=== PATIENT | male | born 1970 | race Hispanic/Latino ===

== ENCOUNTER 2017-05-25 15:19 | Emergency (ER) | payer BC ==
[2017-05-25] MEDS ORDERED: Ketorolac Tromethamine 60 MG/2 ML VIAL ONE (18:50)
--- NOTE | 2017-05-25 19:30 | RAD ---
LUMBAR SPINE TWO VIEW: History: Pain. Comparison: None. FINDINGS: There are five non-rib bearing lumbar type vertebrae. Mild dextroscoliosis. No acute fracture or cat lignment is appreciated. Mild narrowing of the disc space at L3-4, L4-5, and L5-S1 with small anterior osteophytes. No listhes is. IMPRESSION: No acute fracture or malalignment. POS: MIHAELA
[2017-05-25] MEDS ORDERED: cloNIDine 0.1 MG TAB ONE (19:57)
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
== END 2017-05-25 20:03 | disposition home or self-care (01) ==
LOC: ERS 15:19
DX: S16.1XXA Strain of muscle, fascia and tendon at neck level, initial encounter (principal); S39.012A Strain of muscle, fascia and tendon of lower back, initial encounter; E11.9 Type 2 diabetes mellitus without complications; I10 Essential (primary) hypertension; V43.52XA Car driver injured in collision with other type car in traffic accident, initial encounter
CPT/HCPCS: 72040; 72100; 96372; J1885

== ENCOUNTER 2018-02-17 09:07 | Outpatient (CLI) | payer BC ==
--- NOTE | 2018-02-17 10:50 | RAD ---
CERVICAL SPINE SERIES SEVEN VIEWS INCLUDING FLEXION AND EXTENSION AND OBLIQUE VIEWS: HISTORY: A 47-year-old male with a history of cervical radiculopathy. COMPARISON: 05/25/2017. FINDINGS: Generalized disk degenerative change and facet arthrosis and disk-osteophytosis. No prevertebral sof t tissue swelling. No significant malalignment. No abnormal translation between flexion and extensi on. IMPRESSION: Some generalized cervical spondylosis. No other significant acute process. No significant change fr om prior study. POS: MIHAELA
--- NOTE | 2018-02-17 12:42 | MRI ---
LUMBAR SPINE MRI WITHOUT IV CONTRAST: HISTORY: A 47-year-old male with a history of lumbar radiculopathy, low back pain and right leg pain. FINDINGS: Conus medullaris region is unremarkable terminating at L1-L2. There are some disk desiccation change s and ligament and facet hypertrophic changes. L1-L2 and L2-L3 disks are unremarkable. At L3-L4, there is some disk space narrowing and mild disk bulging withuot significant associated julio nosis. At L4-L5, there is diffuse disk bulging without significant central canal, lateral recess, or foramin al stenosis. At L5-S1, some left paracentral annular fissures. No significant canal, lateral recess, or foraminal stenosis. IMPRESSION: Disk desiccation changes without significant associated stenosis. Several annular fissures noted in the left paracentral region of L5-S1. POS: MIHAELA
--- NOTE | 2018-02-17 12:49 | MRI ---
CERVICAL SPINE MRI NONCONTRAST: Date: 02/17/18 CLINICAL HISTORY: Cervical radiculopathy. FINDINGS: No acute marrow edema, compression fracture, or significant subluxation. There is mild degenerative h ypertrophy at the C1-2 level without C1-2 level central canal stenosis. C2-3 level is unremarkable. C3-4: Right paracentral disc protrusion produces ventral mass effect upon the cervical spinal cord w ith mild cord compression. No high grade foraminal stenosis. C4-5: There is a broad based disc osteophyte with moderate central canal stenosis and ventral cord f lattening. Mild to moderate bilateral neural foraminal narrowing is present. C5-6: Mild central canal stenosis and mild ventral cord flattening is present. There is moderate efraín rowing of the right subarticular zone due to lateralized right subarticular osteophyte. This results in moderate right foraminal stenosis. There is no high grade left foraminal stenosis. C6-7: Mild disc osteophyte results in ventral CSF effacement without high grade central canal or for aminal stenosis otherwise depicted. C7-T1: No significant compromise of central canal or neural foramina. IMPRESSION: Multilevel degenerative change of cervical spine, which is most pronounced at C3-4 where there is a r ight paracentral disc protrusion producing cord compression. No significant intrinsic cord signal abn ormality identified. POS: MIHAELA
== END 2018-02-17 09:08 | disposition home or self-care (01) ==
LOC: BICMRI 09:07
PROVIDERS: ATTEND Anesthesiology Pain Medicine
DX: M47.22 Other spondylosis with radiculopathy, cervical region (principal); M50.11 Cervical disc disorder with radiculopathy, high cervical region; M51.16 Intervertebral disc disorders with radiculopathy, lumbar region
CPT/HCPCS: 72052; 72141; 72148

== ENCOUNTER 2020-04-28 14:46 | Day surgery (SDC) | payer BC ==
[~2020-04-28 14:46] MED LIST: Bupivacaine PF 0.75% SDV 10 ML ONE; CEFAZOLIN 1 GM VIAL ONE; Enoxaparin Sodium 30 MG/0.3 ML SYRINGE ONE; Lidocaine 1% PF 5 ML VIAL ONE; Lidocaine 4% PF 5 ML AMP ONE; Maxitrol 0.1% Opth Oint 3.5 GM TUBE ONE; PROPOFOL 200 MG/20 ML VIAL ONE; Triamcinolone 40 MG/ML VIAL ONE
[2020-04-28] MEDS ORDERED: Cyclopentolate 1% Ophth Drops 15 ML BOT ONE (16:03)
[2020-04-28] MEDS ORDERED: Phenylephrine 2.5% Ophth Soln 5 ML BOT ONE (16:03)
[2020-04-28 16:45] LABS: SARS-CoV-2 NAA Rapid Test Not Detected (NotDetected)
[2020-04-28] MEDS ORDERED: Phenylephrine 2.5% Ophth Soln 5 ML BOT FS SCH (17:00)
[2020-04-28] MEDS ORDERED: Cyclopentolate 1% Opth Drop 2 ML BOT FS SCH (17:00)
[2020-04-28] MEDS ORDERED: Fluorouracil 100 MG, Enoxaparin Sodium 25 MG, EPINEPHrine 0.3 MG in Ophthalmic Irrigati... IRR SCH (17:00)
[2020-04-28] MEDS ORDERED: Midazolam HCl 2 mg/2 ml Vial ONE (17:35)
[2020-04-28] MEDS ORDERED: Fentanyl 100 MCG/2 ML VIAL ONE (17:35)
--- NOTE | 2020-05-01 12:01 | OP ---
DATE OF PROCEDURE: 05/01/2020 PREOPERATIVE DIAGNOSIS: Rhegmatogenous retinal detachment, right eye. POSTOPERATIVE DIAGNOSIS: Rhegmatogenous retinal detachment, right eye. PROCEDURES PERFORMED: Pars plana vitrectomy, retinal detachment repair, right eye. ANESTHESIA: Local with monitored anesthesia care. DESCRIPTION OF PROCEDURE: The patient was identified in the preoperative holding area. Appropriate informed consent for the planned surgical procedure on the right eye had been obtained. The patient was transported to the operative suite, where appropriate cardiopulmonary monitoring was established. Local anesthesia was obtained, retrobulbar modified Van Lint lid block using 50:50 mixture of 4% lidocaine, 0.75% bupivacaine. The patient was prepped and draped in usual sterile manner for ophthalmic surgery on the right eye. Lid speculum was placed in the right eye. 25-gauge trocar was placed through conjunctiva and sclera superotemporally, inferotemporally, supranasally. Infusion line was placed inferotemporally. Light pipe and vitreous cutter were inserted into the eye. Core vitrectomy was performed. Preexisting inferior retinal tear was noted. It was well treated. Superior temporal retinal detachment was identified. Vitreous was trimmed back 360 degrees with special attention to the superior temporal quadrant. Complete air-fluid exchange was performed with 10 minutes being allowed for fluid to drain posteriorly. 360 laser was placed using Endolaser delivery device. Trocars were removed complete air-fluid exchange was performed with 10 minutes being posteriorly. 28% sulfur hexafluoride gas was infused into the eye. Trocars were removed, and sclerotomy was suture closed with 6-0 plain gut suture. Retrobulbar Kenalog and subconjunctival Ancef were placed. Antibiotic ointment was placed. The eye was patched and shielded. The patient was taken to postop recovery unit in good condition, having suffered no immediate perioperative complications. The patient was instructed to keep patch shield on, avoid lifting or bending, position right side down and followup appointment with Dr. Hardy. Job ID: [id number]
== END 2020-04-28 19:30 | disposition home or self-care (01) ==
LOC: SDC 14:46
PROVIDERS: ATTEND Ophthalmology Retina Specialist
PROC: 08T43ZZ Resection of Right Vitreous, Percutaneous Approach (ICD-10-PCS; principal; 2020-04-28)
PROC: 08QE3ZZ Repair Right Retina, Percutaneous Approach (ICD-10-PCS; principal; 2020-04-28)
DX: H33.011 Retinal detachment with single break, right eye (principal); Z20.822 Contact with and (suspected) exposure to COVID-19
CPT/HCPCS: 67025; J0171; J0690; J1650; J2250; J2704; J3010; J3301; J3490; J9190; U0002